=== PATIENT | female | born 1995 | race Caucasian/White ===

== ENCOUNTER 2022-11-12 09:22 | Outpatient (CLI) | payer OTHER, SELFPAY | END 2022-11-12 09:23 | disposition home or self-care (01) | LOC: ANHAUDASC 09:23 | PROVIDERS: PCP Nurse Practitioner Family; Visit Provider Otolaryngology | DX: H90.3 Sensorineural hearing loss, bilateral (principal) | CPT/HCPCS: 92557; 92567 ==